=== PATIENT | female | born 1950 | race Caucasian/White ===

== ENCOUNTER 2023-02-08 10:39 | Inpatient (IN) | payer OTHER ==
[2023-02-08 11:25] LABS: HEMOGLOBIN 14.4 GM/dL (10.7-15.3); MCH 29.2 pg (25.7-33.7); MCHC 34.2 g/dl (32.0-36.0); MEAN CELL VOLUME 85.3 fl (80-96); MEAN PLT VOLUME 7.8 fl (7.5-11.1); PLATELET COUNT 353 10^3/uL (134-434); RBC 4.92 M/mm3 (3.60-5.2); RDW 14.6 % (11.6-15.6); WHITE BLOOD COUNT 22.3 K/mm3 (4.0-10.0)
[2023-02-08] MEDS ORDERED: ACETAMINOPHEN 1000 MG/100 ML BAG IVPB ONE (11:25)
[2023-02-08 11:33] LABS: INR 1.21 (0.83-1.09)
[2023-02-08 11:45] LABS: CHLORIDE 96 mmol/L (98-107); POTASSIUM 4.4 mmol/L (3.5-5.1); SODIUM 130 mmol/L (136-145)
[2023-02-08 11:47] LABS: ALBUMIN 3.4 g/dl (3.4-5.0); ANION GAP 11 MMOL/L (8-16); ANISOCYTOSIS 0; CALCIUM 9.3 mg/dL (8.5-10.1); CO2 23 mmol/L (21-32); HELMET CELLS 0; HOWELL-JOLLY BODIES 0; MACROCYTOSIS 0; OVALOCYTE 0; ROULEAU 0; SICKELED CELLS 0; TARGET CELLS 0; TEAR DROP CELLS 0; TOXIC GRANULATION 0
[2023-02-08 11:49] LABS: BLOOD UREA NITROGEN 24.6 mg/dL (7-18); GLUCOSE,RANDOM 138 mg/dL (74-106)
[2023-02-08 11:50] LABS: SGPT/ALT 51 U/L (13-61)
[2023-02-08 11:51] LABS: SGOT/AST 50 U/L (15-37)
[2023-02-08 11:52] LABS: CHOLESTEROL 243 mg/dL (50-200); TOT PROT 8.2 g/dl (6.4-8.2)
[2023-02-08 11:53] LABS: BILIRUBIN,TOTAL 0.9 mg/dL (0.2-1)
[2023-02-08 11:54] LABS: LDL CHOLESTEROL (ONLY SJRH) 152 mg/dL (5-100)
[2023-02-08 11:55] LABS: ALK PHOS 155 U/L (45-117); HDL CHOLESTEROL 71 mg/dL (40-60)
[2023-02-08 12:32] LABS: VENOUS BASE EXCESS -1.2 mmol/L (-2-2); VENOUS O2 SATURATION 79.1 % (70-80); VENOUS PCO2 36.8 mmHg (38-52); VENOUS PH 7.41 (7.310-7.410)
[2023-02-08] MEDS ORDERED: PIPERACILLIN/TAZOB 3.375 GM 3.375 GM in DEXTROSE 5%-WATER - 50 ML IVPB ONE (12:36)
[2023-02-08] MEDS ORDERED: LACTATED RINGERS SOLUTION 1000 ML INFUS.BAG IV ONE (12:37)
[2023-02-08 12:45] LABS: LIPASE 89 U/L (73-393)
[2023-02-08] MEDS: SODIUM CHLORIDE 1,000 ML IV SCH (12:47)
[2023-02-08] MEDS ORDERED: PIPERACILLIN/TAZOB 3.375 GM 3.375 GM/50 ML BAG IVPB ONE (13:16)
[2023-02-08 14:08] LABS: EPI CELLS >36 /uL (0-25.1); HYALINE CASTS 11 /uL (0-3.1); URINE APPEARANCE CLOUDY; URINE BACTERIA 12 /uL (0-1359); URINE BILIRUBIN NEGATIVE (NEGATIVE); URINE COLOR YELLOW; URINE GLUCOSE (UA) NEGATIVE (NEGATIVE); URINE KETONE NEGATIVE (NEGATIVE); URINE LEUK ESTERASE NEGATIVE (NEGATIVE); URINE NITRITE NEGATIVE (NEGATIVE); URINE PROTEIN 2+ (NEGATIVE); URINE RBC 11 /uL (0-23.9); URINE UROBILINOGEN 0.2 mg/dL (0.2-1.0); URINE WBC 55 /uL (0-25.8)
[2023-02-08 14:33] LABS: LACTIC ACID 2.3 mmol/L (0.4-2.0)
[2023-02-08 17:07] VITALS: BMI 29.4
[2023-02-08] MEDS ORDERED: LACTATED RINGERS SOLUTION 1,000 ML/1,000 ML INFUS.BAG IV STA (18:35)
[2023-02-08] MEDS: PIPERACILLIN/TAZOB 2.25 GM 2.25 GM in DEXTROSE 5%-WATER - 50 ML IVPB SCH (20:09)
[2023-02-08] MEDS ORDERED: HEPARIN NA (PORCINE) 5,000 UNITS/ML 1ML VIAL SQ SCH (22:00)
[2023-02-09] MEDS: PIPERACILLIN/TAZOB 2.25 GM 2.25 GM in DEXTROSE 5%-WATER - 50 ML IVPB SCH ×3 (03:28→22:31)
[2023-02-09 07:49] LABS: BASO % 0.3 % (0-2.0); HEMATOCRIT 34.1 % (32.4-45.2); LYMPH % 8.2 % (8-40); MCH 28.3 pg (25.7-33.7); MCHC 32.2 g/dl (32.0-36.0); MEAN CELL VOLUME 88.1 fl (80-96); MEAN PLT VOLUME 8.9 fl (7.5-11.1); MONO % 7.7 % (3.8-10.2); NEUT % 82.8 % (42.8-82.8); PLATELET COUNT 293 10^3/uL (134-434); RBC 3.88 M/mm3 (3.60-5.2); RDW 14.4 % (11.6-15.6)
[2023-02-09 08:03] LABS: POTASSIUM 4.1 mmol/L (3.5-5.1)
[2023-02-09 08:04] LABS: CALCIUM 8.2 mg/dL (8.5-10.1)
[2023-02-09 08:05] LABS: BLOOD UREA NITROGEN 23.3 mg/dL (7-18); MAGNESIUM 2.1 mg/dL (1.8-2.4)
[2023-02-09 08:08] LABS: CREATININE 1.4 mg/dL (0.55-1.3); PHOSPHOROUS 2.4 mg/dL (2.5-4.9)
[2023-02-09 08:10] LABS: BILIRUBIN,TOTAL 0.7 mg/dL (0.2-1); TOT PROT 6.2 g/dl (6.4-8.2)
[2023-02-09 08:24] LABS: ALBUMIN 2.5 g/dl (3.4-5.0)
[2023-02-09] MEDS ORDERED: PIPERACILLIN/TAZOB 2.25 GM 2.25 GM in DEXTROSE 5%-WATER - 50 ML IVPB SCH ×2 (15:00→15:15)
[2023-02-09] MEDS: SODIUM CHLORIDE 1,000 ML IV SCH (18:48)
[2023-02-09] MEDS ORDERED: CEPHALEXIN MONOHYDRATE 500 MG CAPSULE (UD) PO SCH ×2 (22:00)
[2023-02-09] MEDS: ATORVASTATIN CA 40 MG TABLET (FP) PO SCH (22:31)
[2023-02-10] MEDS: PIPERACILLIN/TAZOB 2.25 GM 2.25 GM in DEXTROSE 5%-WATER - 50 ML IVPB SCH ×4 (03:06→21:18)
[2023-02-10 09:09] LABS: BASO % 0.3 % (0-2.0); EOS % 1.7 % (0-4.5); HEMATOCRIT 32.6 % (32.4-45.2); HEMOGLOBIN 10.8 GM/dL (10.7-15.3); MCH 28.9 pg (25.7-33.7); MEAN CELL VOLUME 87.6 fl (80-96); MEAN PLT VOLUME 8.7 fl (7.5-11.1); MONO % 8.4 % (3.8-10.2); NEUT % 80.6 % (42.8-82.8); PLATELET COUNT 305 10^3/uL (134-434); RBC 3.72 M/mm3 (3.60-5.2); RDW 14.2 % (11.6-15.6); WHITE BLOOD COUNT 14.3 K/mm3 (4.0-10.0)
[2023-02-10 09:24] LABS: POTASSIUM 4.1 mmol/L (3.5-5.1)
[2023-02-10 09:44] LABS: BILIRUBIN,TOTAL 0.6 mg/dL (0.2-1); TOT PROT 6.3 g/dl (6.4-8.2)
[2023-02-10 09:45] LABS: ALBUMIN 2.4 g/dl (3.4-5.0); CALCIUM 8.7 mg/dL (8.5-10.1); PHOSPHOROUS 2.4 mg/dL (2.5-4.9)
[2023-02-10 09:47] LABS: BLOOD UREA NITROGEN 19.4 mg/dL (7-18); MAGNESIUM 2.2 mg/dL (1.8-2.4)
[2023-02-10] MEDS: ATORVASTATIN CA 40 MG TABLET (FP) PO SCH (21:18)
[2023-02-11] MEDS: PIPERACILLIN/TAZOB 2.25 GM 2.25 GM in DEXTROSE 5%-WATER - 50 ML IVPB SCH ×4 (03:44→21:41)
[2023-02-11 08:14] LABS: BASO % 0.4 % (0-2.0); EOS % 2.5 % (0-4.5); HEMATOCRIT 32.4 % (32.4-45.2); HEMOGLOBIN 11.1 GM/dL (10.7-15.3); MCH 29.5 pg (25.7-33.7); MCHC 34.3 g/dl (32.0-36.0); MEAN PLT VOLUME 8.1 fl (7.5-11.1); MONO % 9.7 % (3.8-10.2); NEUT % 68.4 % (42.8-82.8); PLATELET COUNT 332 10^3/uL (134-434); RBC 3.76 M/mm3 (3.60-5.2); RDW 14.3 % (11.6-15.6)
[2023-02-11 08:31] LABS: POTASSIUM 4.3 mmol/L (3.5-5.1)
[2023-02-11 08:37] LABS: ALBUMIN 2.5 g/dl (3.4-5.0); BLOOD UREA NITROGEN 13.5 mg/dL (7-18); CALCIUM 8.9 mg/dL (8.5-10.1)
[2023-02-11 08:40] LABS: BILIRUBIN,TOTAL 0.5 mg/dL (0.2-1); CREATININE 0.9 mg/dL (0.55-1.3); PHOSPHOROUS 3.2 mg/dL (2.5-4.9); TOT PROT 6.7 g/dl (6.4-8.2)
[2023-02-11] MEDS: ATORVASTATIN CA 40 MG TABLET (FP) PO SCH (21:41)
[2023-02-12] MEDS: PIPERACILLIN/TAZOB 2.25 GM 2.25 GM in DEXTROSE 5%-WATER - 50 ML IVPB SCH ×4 (02:46→21:45)
[2023-02-12] MEDS ORDERED: ONDANSETRON 4 MG/2 ML VIAL ONE (08:05)
[2023-02-12] MEDS ORDERED: PROPOFOL 40 ML ONE (08:05)
[2023-02-12] MEDS ORDERED: DEXAMETHASONE SOD PHOSPHATE 4 MG/1 ML VIAL ONE (08:05)
[2023-02-12] MEDS ORDERED: MIDAZOLAM HCL 2 MG/2 ML SINGLE DOSE VIAL ONE (08:05)
[2023-02-12] MEDS ORDERED: ceFAZolin SODIUM 1 GM VIAL ONE (08:05)
[2023-02-12] MEDS ORDERED: HYDROmorphone HCl 2 MG/ML VIAL ONE (08:05)
[2023-02-12 08:40] LABS: INR 1.06 (0.83-1.09); PROTHROMBIN TIME (PATIENT) 12.3 SEC (9.7-13.0)
[2023-02-12 08:46] LABS: BASO % 0.7 % (0-2.0); EOS % 3.1 % (0-4.5); HEMATOCRIT 32.5 % (32.4-45.2); HEMOGLOBIN 10.6 GM/dL (10.7-15.3); LYMPH % 19.2 % (8-40); MCH 28.8 pg (25.7-33.7); MCHC 32.6 g/dl (32.0-36.0); MEAN CELL VOLUME 88.4 fl (80-96); MEAN PLT VOLUME 8.4 fl (7.5-11.1); PLATELET COUNT 362 10^3/uL (134-434); RBC 3.68 M/mm3 (3.60-5.2); RDW 14.4 % (11.6-15.6); WHITE BLOOD COUNT 8.8 K/mm3 (4.0-10.0)
[2023-02-12 09:00] LABS: POTASSIUM 4.8 mmol/L (3.5-5.1)
[2023-02-12] MEDS ORDERED: LIDOCAINE HCL 1%, 10 MG/ML (10ML VIAL) MDV ONE (09:09)
[2023-02-12] MEDS ORDERED: BUPIVACAINE HCL/PF 0.5% (5MG/ML) 10 ML VIAL ONE (09:09)
[2023-02-12 09:10] LABS: ALBUMIN 2.5 g/dl (3.4-5.0); BLOOD UREA NITROGEN 14.9 mg/dL (7-18); MAGNESIUM 2.1 mg/dL (1.8-2.4)
[2023-02-12 09:12] LABS: PHOSPHOROUS 3.9 mg/dL (2.5-4.9)
[2023-02-12 09:14] LABS: BILIRUBIN,TOTAL 0.3 mg/dL (0.2-1); TOT PROT 6.7 g/dl (6.4-8.2)
[2023-02-12] MEDS ORDERED: ROCURONIUM BROMIDE 50 MG/5 ML SYRINGE ONE (09:39)
[2023-02-12] MEDS ORDERED: PIPERACILLIN/TAZOBACTAM 2.25 GM VIAL IVPB ONE (09:40)
[2023-02-12] MEDS ORDERED: LIDOCAINE HCL 1%, 10 MG/ML (20ML VIAL) INF ONE (09:50)
[2023-02-12] MEDS ORDERED: BUPIVACAINE HCL/PF 0.5% (5MG/ML) 10 ML VIAL IJ ONE (09:50)
[2023-02-12] MEDS ORDERED: ESMOLOL HCL 100,000 MCG/10 ML VIAL ONE (10:16)
[2023-02-12] MEDS ORDERED: ACETAMINOPHEN INJECTION 100 ML IVPB ONE (10:28)
[2023-02-12] MEDS ORDERED: SUGAMMADEX SODIUM 200 MG/2 ML VIAL ONE (10:46)
[2023-02-12] MEDS ORDERED: traMADol HCL 50 MG TABLET PO PRN (11:45)
[2023-02-12] MEDS ORDERED: HEPARIN NA (PORCINE) 5,000 UNITS/ML 1ML VIAL SQ SCH (14:00)
[2023-02-12] MEDS: amLODIPine BESYLATE 5 MG TABLET (FP) PO SCH (15:17)
[2023-02-12] MEDS: LACTATED RINGERS SOLUTION 1,000 ML IV SCH (17:04)
[2023-02-12] MEDS: ACETAMINOPHEN 1000 MG/100 ML BAG IVPB SCH ×2 (17:06→23:02)
[2023-02-12] MEDS ORDERED: amLODIPine BESYLATE 5 MG TABLET (FP) PO ONE (17:28)
[2023-02-12] MEDS ORDERED: ATORVASTATIN CA 40 MG TABLET (FP) PO SCH (22:00)
[2023-02-13 02:50] VITALS: RESP 18
[2023-02-13] MEDS: LACTATED RINGERS SOLUTION 1,000 ML IV SCH ×2 (06:11→15:20)
[2023-02-13] MEDS: ACETAMINOPHEN 1000 MG/100 ML BAG IVPB SCH ×2 (06:11→11:40)
[2023-02-13] MEDS: PIPERACILLIN/TAZOB 2.25 GM 2.25 GM in DEXTROSE 5%-WATER - 50 ML IVPB SCH ×4 (06:14→21:14)
[2023-02-13 07:56] LABS: BASO % 0.5 % (0-2.0); EOS % 0.3 % (0-4.5); HEMATOCRIT 31.7 % (32.4-45.2); HEMOGLOBIN 10.4 GM/dL (10.7-15.3); MCH 28.5 pg (25.7-33.7); MCHC 32.7 g/dl (32.0-36.0); MEAN CELL VOLUME 87.3 fl (80-96); MEAN PLT VOLUME 8.2 fl (7.5-11.1); MONO % 7.7 % (3.8-10.2); NEUT % 74.5 % (42.8-82.8); PLATELET COUNT 380 10^3/uL (134-434); RBC 3.63 M/mm3 (3.60-5.2); RDW 14.3 % (11.6-15.6); WHITE BLOOD COUNT 10.2 K/mm3 (4.0-10.0)
[2023-02-13 08:40] LABS: POTASSIUM 4.5 mmol/L (3.5-5.1)
[2023-02-13 08:47] LABS: ALBUMIN 2.5 g/dl (3.4-5.0); CALCIUM 8.8 mg/dL (8.5-10.1); MAGNESIUM 1.9 mg/dL (1.8-2.4)
[2023-02-13 08:48] LABS: BLOOD UREA NITROGEN 8.4 mg/dL (7-18); CREATININE 0.9 mg/dL (0.55-1.3); PHOSPHOROUS 3.9 mg/dL (2.5-4.9)
[2023-02-13 08:49] LABS: BILIRUBIN,TOTAL 0.2 mg/dL (0.2-1); TOT PROT 6.4 g/dl (6.4-8.2)
[2023-02-13] MEDS: amLODIPine BESYLATE 5 MG TABLET (FP) PO SCH (11:25)
[2023-02-13] MEDS ORDERED: LACTATED RINGERS SOLUTION 1,000 ML IV SCH (19:51)
[2023-02-13] MEDS ORDERED: traMADol HCL 50 MG TABLET PO PRN (19:51)
[2023-02-13] MEDS: HEPARIN NA (PORCINE) 5,000 UNITS/ML 1ML VIAL SQ SCH (21:15)
[2023-02-13] MEDS ORDERED: ATORVASTATIN CA 40 MG TABLET (FP) PO SCH (22:00)
[2023-02-14] MEDS: PIPERACILLIN/TAZOB 2.25 GM 2.25 GM in DEXTROSE 5%-WATER - 50 ML IVPB SCH ×3 (03:38→14:30)
[2023-02-14] MEDS: HEPARIN NA (PORCINE) 5,000 UNITS/ML 1ML VIAL SQ SCH ×2 (05:37→14:31)
[2023-02-14] MEDS ORDERED: traMADol HCL 50 MG TABLET PO PRN (07:39)
[2023-02-14 08:55] LABS: BASO % 0.6 % (0-2.0); EOS % 2.1 % (0-4.5); LYMPH % 18.6 % (8-40); MCH 28.5 pg (25.7-33.7); MCHC 32.4 g/dl (32.0-36.0); MEAN CELL VOLUME 87.7 fl (80-96); MEAN PLT VOLUME 8.1 fl (7.5-11.1); MONO % 8.6 % (3.8-10.2); NEUT % 70.1 % (42.8-82.8); PLATELET COUNT 457 10^3/uL (134-434); RBC 3.87 M/mm3 (3.60-5.2); RDW 14.4 % (11.6-15.6); WHITE BLOOD COUNT 9.6 K/mm3 (4.0-10.0)
[2023-02-14 09:20] LABS: POTASSIUM 4.3 mmol/L (3.5-5.1)
[2023-02-14 09:23] LABS: ALBUMIN 2.8 g/dl (3.4-5.0); BLOOD UREA NITROGEN 12.1 mg/dL (7-18); CALCIUM 8.8 mg/dL (8.5-10.1)
[2023-02-14 09:27] LABS: BILIRUBIN,TOTAL 0.3 mg/dL (0.2-1); CREATININE 0.9 mg/dL (0.55-1.3); TOT PROT 6.9 g/dl (6.4-8.2)
[2023-02-14] MEDS ORDERED: amLODIPine BESYLATE 5 MG TABLET (FP) PO SCH (10:00)
[2023-02-14 14:44] VITALS: BP 156/83; PULSE 81; TEMP 97.9
== END 2023-02-14 21:52 | disposition home or self-care (01) | DRG 853 ==
LOC: JER 10:39 → JERBED 15:05 → J4W 16:37 → J6S 02-13 19:53
PROVIDERS: ADMIT Internal Medicine; ATTEND Internal Medicine
PROC: 0FT44ZZ Resection of Gallbladder, Percutaneous Endoscopic Approach (ICD-10-PCS; principal; 2023-02-12 09:00)
DX: A41.9 Sepsis, unspecified organism (principal); G93.41 Metabolic encephalopathy; I21.A1 Myocardial infarction type 2; K80.00 Calculus of gallbladder with acute cholecystitis without obstruction; G45.9 Transient cerebral ischemic attack, unspecified; N17.9 Acute kidney failure, unspecified; N39.0 Urinary tract infection, site not specified; J98.11 Atelectasis; R65.20 Severe sepsis without septic shock; I10 Essential (primary) hypertension; K76.0 Fatty (change of) liver, not elsewhere classified; L40.9 Psoriasis, unspecified; E78.5 Hyperlipidemia, unspecified
CPT/HCPCS: 0241U-QW; 36415; 70450-TC; 71045-TC-FY; 71250-TC; 74176-TC; 76705-TC; 78226-TC; 80053; 80061; 81003; 82550; 82803; 82962; 83036; 83605; 83690; 83735; 84100; 84439; 84443; 84484; 85025; 85610; 85730; 86140; 86850; 86900; 86901; 87040; 87086; 88304-TC; 93005; 93010; 93306-TC; 94010; 94760; 97116-GP; 97161-GP; 99291; A9537; J1644